=== PATIENT | female | born 1975 | race Hispanic/Latino ===

== ENCOUNTER 2017-06-08 03:53 | Inpatient (IN) | payer BC ==
[2017-06-08] MEDS ORDERED: Iopamidol 370 76% 100 ML VIAL ONE (04:06)
[2017-06-08 04:35] LABS: #Basophils 0.1 thou/uL (0.0-0.2); #Eosinphils 0.2 thou/uL (0.0-0.7); #Neutrophils 10.2 thou/uL (1.40-6.50); %Basophils 0.7 % (0.0-1.0); %Eosinophils 1.2 % (0.0-10.0); %Lymphocytes 20.5 % (21.0-51.0); %Monocytes 6.9 % (0.0-10.0); Hematocrit 32.5 % (36.0-47.0); Red Blood Cell (RBC) Count 3.55 mill/uL (4.20-5.40); White Blood Cell (WBC) Count 14.4 thou/uL (4.8-10.8)
[2017-06-08 04:51] LABS: ALT (SGPT) 12 U/L (8-55); AST (SGOT) 15 U/L (5-34); Alkaline Phosphatase 81 U/L (40-150); Anion Gap 14 mmol/L (10-20); BUN (Urea Nitrogen) 8 mg/dL (7.0-18.7); Bilirubin, Total 0.3 mg/dL (0.2-1.2); Calc. Creatinine Clearance 0 mL/min (70-130); Calcium 9.1 mg/dL (7.8-10.44); Carbon Dioxide 24 mmol/L (22-29); Chloride 107 mmol/L (98-107); Estimated GFR-MDRD Greater than 90; Globulin 3.5 g/dL (2.4-3.5); Lipase 29 U/L (8-78); Protein, Total 7.2 g/dL (6.0-8.3)
[2017-06-08 04:52] LABS: Bilirubin Negative (Negative); Blood, Urine Negative (Negative); Glucose, Urine (Dipstick) Negative (Negative); Ketone, Urine Negative (Negative); Nitrite Negative (Negative); Protein, Urine (Dipstick) Negative (Neg-Trace); Urobilinogen 0.2 mg/dL (0.2-1.0)
[2017-06-08] MEDS ORDERED: Sodium Chloride 0.9% 100 ML ONE (07:14)
[2017-06-08] MEDS ORDERED: Meropenem 1 GM VIAL ONE (07:14)
--- NOTE | 2017-06-08 08:22 | CT ---
PRELIMINARY REPORT/[facility]/EMERGENCY AFTER HOURS PROCEDURE: EXAM: CT Abdomen and Pelvis With Intravenous Contrast CLINICAL HISTORY: 41 years old, female; Pain; Abdominal pain; Localized; Left lower quadrant (llq); Prior surgery; Juanito rodrick date: 6+ months; Surgery type: Cervical ablation 2004, lap band 2006-removed 2010, gastric slee ve 2015, lamont 1999; Patient HX: Llq pain for a week, no hs of diverticulitis TECHNIQUE: Axial computed tomography images of the abdomen and pelvis with intravenous contrast. Coronal reformatted images were created and reviewed. CONTRAST: 90 mL of [id number] administered intravenously. COMPARISON: No relevant prior studies available. FINDINGS: Lower thorax: There is a small hiatal hernia. There is suggestion of distal esophageal wall thickeni ng. ABDOMEN: Liver: Unremarkable. No mass. Gallbladder and bile ducts: Cholecystectomy. No ductal dilation. Pancreas: Unremarkable. No mass. No ductal dilation. Spleen: Unremarkable. No splenomegaly. Adrenals: Unremarkable. No mass. Kidneys and ureters: Unremarkable. No solid mass. No hydronephrosis. Stomach and bowel: There are postoperative changes of the upper abdomen probably from gastric bypass . Moderate residual stool. No definite bowel obstruction. There is diverticular disease. There is wa ll thickening of the sigmoid colon with moderate pericolonic fat stranding. There are tiny air foci about sigmoid colon of the left lower quadrant without definite peripheral wall, image 64 series 2. This could be volume averaging of air within diverticulum. Cannot exclude microperforation. No gross free air. No definite fluid collection. Appendix: The appendix is not seen. However, no evidence for inflammatory changes in the right lower quadrant. PELVIS: Bladder: Unremarkable. No mass. Reproductive: Unremarkable as visualized. ABDOMEN and PELVIS: Intraperitoneal space: See above. Bones/joints: No acute fracture. No dislocation. Soft tissues: Unremarkable. Vasculature: Unremarkable. No abdominal aortic aneurysm. Lymph nodes: Unremarkable. No enlarged lymph nodes. IMPRESSION: Sigmoid diverticulitis with possible microperforation.No gross free air. No definite fluid collectio n. Distal esophageal wall thickening concerning for esophagitis. Thank you for allowing us to participate in the care of your patient. Dictated and Authenticated by: Darlin Angel DO 06/08/2017 7:00 AM Central Time ([place] \[place]\ [place]) FINAL REPORT CT ABDOMEN AND PELVIS WITH IV AND ORAL CONTRAST: DATE: 06/08/17. TIME: Performed on an emergency basis at 0556 hours. HISTORY: Abdominal pain. Prior bariatric surgery. FINDINGS: Findings agree with the preliminary report by Dr. Angel from [facility]. Inflammation of th e left colon has the appearance of acute diverticulitis. Hiatal hernia, gastroesophageal reflux, an d postoperative changes of the stomach are also evident. POS: [facility]
[2017-06-08] MEDS ORDERED: Ondansetron HCl/PF 4 MG/2 ML Vial IVP PRN (09:26)
[2017-06-08] MEDS ORDERED: Sodium Chloride 0.9% 1,000 ML IV SCH (09:26)
[2017-06-08] MEDS ORDERED: Ondansetron ODT 4 MG TAB SL PRN (09:26)
[2017-06-08 09:40] VITALS: BMI 27.3
[2017-06-08] MEDS ORDERED: FLU VACC QS2017-18 36 mo. & older 0.5 ML SYRINGE IM ONE (12:00)
--- NOTE | 2017-06-08 13:34 | HP ---
CHIEF COMPLAINT: Left lower quadrant abdominal pain. HISTORY OF PRESENT ILLNESS: The patient is a 41-year-old female with a 1-week history of left lower quadrant pain associated with nausea and vomiting. She went to Urgent Care. She was started on 2 oral antibiotics. She seemed to get a little better; then by Friday, it seemed to be getting worse. She called Dr. Jacobs, he ordered some labs that looked fine; however, it continued to get worse and she went to the emergency room last night and a CT scan was performed that showed diverticulitis with microperforation. PAST MEDICAL HISTORY: Hypothyroidism. PAST SURGICAL HISTORY: She has had a sleeve gastrectomy, laparoscopic cholecystectomy, sec tion, lap band. MEDICATIONS: She takes thyroid medication and multivitamins. ALLERGIES: KEFLEX, causing a rash. SOCIAL HISTORY: She is . She is an executive office manager. No tobacco. Social alcohol. FAMILY HISTORY: Breast cancer in her grandmother, hypertension in her father. PHYSICAL EXAMINATION: VITAL SIGNS: Temperature 99, pulse 100, blood pressure 96/50. GENERAL: A well-developed, well-nourished female, in minimal distress. HEENT: Unremarkable. LUNGS: Clear. HEART: Regular rate and rhythm. ABDOMEN: Soft, nondistended, very tender in the left lower quadrant. No palpable masses. LABORATORY AND X-RAY FINDINGS: Her white count is 14, H and H are 10 and 32, platelet count 425. E lectrolytes are unremarkable. Urinalysis is clear. CT scan shows sigmoid diverticulitis with possi ble microperforation, no free air. ASSESSMENT: Diverticulitis, failing outpatient therapy. PLAN: Bowel rest, IV antibiotics.
[2017-06-08] MEDS: D5 1/2 NS w/20 mEq KCL 1,000 ML IV SCH ×2 (14:01→20:55)
[2017-06-08] MEDS: Acetaminophen 1,000 MG in Premix Bag 1 BAG IVPB PRN (14:01)
[2017-06-08] MEDS: Meropenem 2 GM in Sodium Chloride 0.9% 100 ML IVPB SCH ×2 (14:02→21:40)
[2017-06-09] MEDS: D5 1/2 NS w/20 mEq KCL 1,000 ML IV SCH ×3 (03:26→20:48)
[2017-06-09] MEDS: Acetaminophen 1,000 MG in Premix Bag 1 BAG IVPB PRN ×2 (03:31→11:57)
[2017-06-09] MEDS: Meropenem 2 GM in Sodium Chloride 0.9% 100 ML IVPB SCH (05:15)
[2017-06-09] MEDS: Ketorolac Tromethamine 30 MG/ML VIAL IVP SCH ×3 (11:56→23:35)
[2017-06-09] MEDS: Meropenem 2 GM, Admixture Fee 1 EACH in Sodium Chloride 0.9% 100 ML IVPB SCH ×2 (14:50→22:11)
[2017-06-09] MEDS ORDERED: Acetaminophen 1,000 MG in Premix Bag 1 BAG IVPB PRN (17:53)
[2017-06-10] MEDS: Ketorolac Tromethamine 30 MG/ML VIAL IVP SCH (05:07)
[2017-06-10] MEDS: Meropenem 2 GM, Admixture Fee 1 EACH in Sodium Chloride 0.9% 100 ML IVPB SCH (05:08)
[2017-06-10] MEDS: D5 1/2 NS w/20 mEq KCL 1,000 ML IV SCH ×2 (05:08→11:14)
[2017-06-10 05:45] LABS: #Eosinphils 0.2 thou/uL (0.0-0.7); #Lymphocytes 3.1 thou/uL (1.20-3.40); #Monocytes 0.7 thou/uL (0.11-0.59); #Neutrophils 6.4 thou/uL (1.40-6.50); %Basophils 0.5 % (0.0-1.0); %Eosinophils 1.6 % (0.0-10.0); %Monocytes 6.5 % (0.0-10.0); Hematocrit 30.1 % (36.0-47.0); Mean Platelet Volume 7.1 fL (7.4-10.4); Red Blood Cell (RBC) Count 3.11 mill/uL (4.20-5.40); White Blood Cell (WBC) Count 10.3 thou/uL (4.8-10.8)
[2017-06-10 08:16] VITALS: BP 82/45; TEMP 98.5
--- NOTE | 2017-06-10 13:30 | DIS ---
DATE OF ADMISSION: 06/08/2017 DATE OF DISCHARGE: 06/10/2017 ADMISSION DIAGNOSIS: Diverticulitis with microperforation. DISCHARGE DIAGNOSIS: Diverticulitis with microperforation OPERATION PERFORMED: None. ADMISSION HISTORY: Patient is a 41-year-old female well known to myself from prior surgery. She wa s admitted in my absence over the weekend when she presented with severe left lower quadrant abdomin al pain. She had leukocytosis and CT evidence of a sigmoid colon diverticulitis with microperforati on. She was placed on IV antibiotics with bowel rest and admitted to the hospital. Her diet was ad vanced to liquids and her pain has markedly improved. She has been afebrile and her white blood malgorzata l count was normal. She was felt to be stable for discharge at this time. She will be discharged o n oral antibiotics for the next 5 days and a liquid diet during that same time. I will see her back in 2 weeks. I have discussed with her the possibility of a scheduled sigmoid colectomy secondary t o her multiple episodes of diverticulitis in the evidence of microperforation with a recent episode.
== END 2017-06-10 11:32 | disposition home or self-care (01) | DRG 392 ==
LOC: SCSER 03:53 → SURG A 09:02
PROVIDERS: ADMIT Specialist; ATTEND Specialist
DX: K57.20 Diverticulitis of large intestine with perforation and abscess without bleeding (principal); E03.9 Hypothyroidism, unspecified; Z98.84 Bariatric surgery status; Z98.0 Intestinal bypass and anastomosis status; Z88.1 Allergy status to other antibiotic agents; Z90.49 Acquired absence of other specified parts of digestive tract
CPT/HCPCS: 36415; 74177; 80053; 81003; 81025; 83690; 85025; 96365; 96375; 96376; J0131; J1885; J2185; J2270; J7050

== ENCOUNTER 2018-01-04 05:33 | Inpatient (IN) | payer BC ==
[2018-01-04 05:58] LABS: #Basophils 0.1 thou/uL (0.0-0.2); #Eosinphils 0.2 thou/uL (0.0-0.7); #Lymphocytes 2.6 thou/uL (1.20-3.40); #Neutrophils 9.8 thou/uL (1.40-6.50); %Eosinophils 1.4 % (0.0-10.0); %Lymphocytes 18.9 % (21.0-51.0); %Monocytes 7.5 % (0.0-10.0); %Neutrophils 71.2 % (42.0-75.0); Mean Corpuscular Hemoglobin 30.3 pg (27.0-31.0); Mean Corpuscular Volume 88.9 fl (81.0-99.0); Mean Platelet Volume 7.5 fL (7.4-10.4); Platelet Count 343 thou/uL (130-400); RBC Distribution Width 12.1 % (11.5-14.5); Red Blood Cell (RBC) Count 3.96 mill/uL (4.20-5.40); White Blood Cell (WBC) Count 13.8 thou/uL (4.8-10.8)
[2018-01-04 05:59] LABS: Bilirubin Negative (Negative); Blood, Urine Trace (Negative); Clarity Clear (Clear); Glucose, Urine (Dipstick) Negative (Negative); Leukocyte Negative (Negative); Nitrite Negative (Negative); Pregnancy Test - Urine (BHCG) Negative (Negative); Pregu Control Background? CLEAR/WHITE (CLR/WHITE); Pregu Control Bar Appear? YES (CONTROL BAR); Protein, Urine (Dipstick) Negative (Neg-Trace); Specific Gravity 1.025 (1.002-1.036); Specific Gravity, Urine 1.025 (1.005-1.030)
[2018-01-04 06:02] LABS: Bacteria/HPF 2+ HPF (None Seen); Hyaline Casts/LPF 0-3 HYALINE CAST LPF (0-3 Hyaline); RBC/HPF 0-3 HPF (0-3); Squamous Epithelial 0-3 HPF (0-3); WBC/HPF 0-3 HPF (0-3)
[2018-01-04 06:13] LABS: ALT (SGPT) 12 U/L (8-55); AST (SGOT) 21 U/L (5-34); Albumin 3.8 g/dL (3.5-5.0); Alkaline Phosphatase 73 U/L (40-150); Anion Gap 16 mmol/L (10-20); BUN (Urea Nitrogen) 10 mg/dL (7.0-18.7); Bilirubin, Total 1.1 mg/dL (0.2-1.2); Calc. Creatinine Clearance 0 mL/min (70-130); Calcium 8.9 mg/dL (7.8-10.44); Carbon Dioxide 21 mmol/L (22-29); Chloride 105 mmol/L (98-107); Estimated GFR-MDRD Greater than 90; Globulin 3.8 g/dL (2.4-3.5); Glucose 93 mg/dL (70-105); Lipase 17 U/L (8-78); Potassium 3.7 mmol/L (3.5-5.1); Protein, Total 7.6 g/dL (6.0-8.3); Sodium 138 mmol/L (136-145)
[2018-01-04] MEDS ORDERED: Iopamidol 370 76% 100 ML VIAL ONE (06:30)
[2018-01-04] MEDS ORDERED: Loratadine 10 MG TAB PO PRN (08:58)
[2018-01-04] MEDS ORDERED: Eucerin (Mineral Oil/Petrolatum,White) 30 gm Jar TOP PRN (08:58)
[2018-01-04] MEDS ORDERED: hydrALAZINE 20 MG/ML VIAL SLOW IVP PRN (08:58)
[2018-01-04] MEDS ORDERED: Acetaminophen 325 MG TAB PO PRN (08:58)
[2018-01-04] MEDS ORDERED: Ondansetron HCl/PF 4 MG/2 ML Vial IVP PRN (08:58)
[2018-01-04] MEDS ORDERED: Sodium Chloride 0.65% Nasal 44 ML BOT EA NARE PRN (08:58)
[2018-01-04] MEDS ORDERED: Mag-Al 1200 mg/1200 mg/30 ML UDCUP PO PRN (08:58)
[2018-01-04] MEDS ORDERED: Artificial Tears 18 DROP/0.9 ML EA EYE PRN (08:58)
[2018-01-04] MEDS ORDERED: Chloraseptic Spray 180 ml Bottle PO PRN (08:58)
[2018-01-04] MEDS ORDERED: Senokot 8.6 MG TAB PO PRN (08:58)
[2018-01-04] MEDS ORDERED: Morphine 4 MG/ML Carpuject SLOW IVP PRN (08:58)
[2018-01-04] MEDS ORDERED: Diabetic Tussin 200 MG/10 ML UDCUP PO PRN (08:58)
[2018-01-04] MEDS ORDERED: Milk Of Magnesia 30 ML UDCUP PO PRN (08:58)
[2018-01-04] MEDS ORDERED: Sodium Chloride 0.9% 1,000 ML IV SCH (09:00)
[2018-01-04 09:02] VITALS: BMI 29.2
[2018-01-04] MEDS ORDERED: Morphine 4 MG/ML VIAL IV PRN (09:06)
[2018-01-04] MEDS: HYDROcodone/Acetaminophen 5/325 mg Tablet PO PRN ×4 (10:04→22:22)
[2018-01-04] MEDS: Enoxaparin Sodium 40 MG/0.4 ML SYRINGE SC SCH (10:05)
--- NOTE | 2018-01-04 10:15 | CT ---
PRELIMINARY REPORT/[facility]/EMERGENTY AFTER-HOURS PROCEDURE Addendum created by Darlin Angel DO on 01/04/2018 7:40 AM Central Time ([place] & [place]) THIS REPORT CON TAINS FINDINGS THAT MAY BE CRITICAL TO PATIENT CARE. The findings were verbally communicated via tele phone conference with Dr. Osuna at 7:40 AM CDT on 01/04/2018.The findings were acknowledged and under stood. Initial Report created on 01/04/2018 7:29 AM Central Time ([place] & [place]) CT Abdomen and Pelvis With Intravenous Contrast CLINICAL HISTORY: 42 years old, female; Pain; Abdominal pain; Localized; Lower; Prior surgery; Surgery date: 6+ months; Surgery type: Cholecystectomy, 3 c-sections, lap band, laproscopy, lapband removal; Patient HX: Pt h ad acute on set of lower abd cramping and pain. Pt point to a bladder area. TECHNIQUE: Axial computed tomography images of the abdomen and pelvis with intravenous contrast. All CT scans at this facility use one or more dose reduction techniques, viz.: automated exposure control; ma/kV adj ustment per patient size (including targeted exams where dose is matched to indication; i.e. head); or iterative reconstruction technique. Coronal reformatted images were created and reviewed. CONTRAST: 100 mL of ISOVUE administered intravenously. COMPARISON: No relevant prior studies available. FINDINGS: Lung bases: There are tiny nodular densities of the lower lobes laterally, image 6-7 on series 2. The y may be in the centrilobular distribution, image 1 of series 2. Mediastinum: Mild to moderate hiatal hernia. ABDOMEN: Liver: Unremarkable. No mass. Gallbladder and bile ducts: Cholecystectomy. The common bile duct measures 0.9 cm, partially accounte d by cholecystectomy. Pancreas: Unremarkable. No mass. No ductal dilation. Spleen: Unremarkable. No splenomegaly. Adrenals: Unremarkable. No mass. Kidneys and ureters: Unremarkable. No solid mass. No hydronephrosis. Stomach and bowel: There is diverticular disease. There is segmental moderate wall thickening of the sigmoid colon with pericolonic fat stranding. No definite free air. On image 16 series 2 there is pos sible 1.9 x 0.9 cm air-fluid collection, concerning for early abscess. No obstruction. PELVIS: Appendix: No findings to suggest acute appendicitis. Bladder: Unremarkable. No mass. Reproductive: There is 1.9 cm cystic structure of the left adnexal region likely ovarian origin. ABDOMEN and PELVIS: Intraperitoneal space: Small free fluid within the lower posterior pelvis. Bones/joints: No acute fracture. No dislocation. Soft tissues: Unremarkable. Vasculature: Unremarkable. No abdominal aortic aneurysm. Lymph nodes: Unremarkable. No enlarged lymph nodes. Other findings: There are postoperative changes of the upper abdomen. IMPRESSION: Sigmoid diverticulitis with probable small abscess collection. No free air. Mild to moderate hiatal hernia. Tiny nodular densities at the lung bases. ?infectious or inflammatory etiology of indeterminate age. Cannot exclude neoplastic changes. Thank you for allowing us to participate in the care of your patient. Dictated and Authenticated by: Darlin Angel DO 01/04/2018 7:29 AM Central Time ([place] & [place]) FINAL REPORT CT ABDOMEN AND PELVIS: Date: 01/04/18 Multiple axial tomograms obtained through abdomen and pelvis with IV enhancement. FINDINGS/IMPRESSION: There is mural thickening and inflammatory changes in the mid sigmoid suggesting diverticulitis as no phylicia on the preliminary report. There may be an early abscess collection measuring approximately 1.5 c m along the wall of the sigmoid. There is a cystic lesion in the left pelvis measuring approximately 2.0 cm, which is probably ovarian. I am in agreement with the preliminary report issued by Robert. POS: [facility]
--- NOTE | 2018-01-04 12:11 | HP ---
PRIMARY CARE PHYSICIAN: Dr. Horacio Weber. REASON FOR ADMISSION: Acute and recurrent diverticulitis with abscess. HISTORY OF PRESENT ILLNESS: A 42-year-old female who has underlying history of hypothyroidi sm, who went to [facility] for abdominal pain. Patient reports that on Sat urday, which was yesterday, in the morning when she woke up she was feeling left lower quadrant disco mfort, but by the end of the day, her pain was getting worse. When she went to bed around 9, it was then the patient was having severe pain about 8/10 in intensity. She tried [id number] medicati on for pain as well as some heating pad, which did not improve her symptoms. Around 4 in the morning , the patient's pain had gotten worse. She was having unbearable pain and she was not able to tolera te pain and that is why she decided to go to emergency room for evaluation. In the emergency room, p johnny was having low-grade fevers. The patient also felt chills at home. Patient already knew that she has diverticulitis. Given her previous 4 episodes of diverticulitis in the past, patient report s that she had 3 minor episode of diverticulitis, which has improved with oral antibiotic therapy. M ost recent admission was in last year around June. At that time, the patient did not improv e with oral antibiotic therapy, required hospitalization with IV antibiotic therapy. After antibioti c therapy was finished, the patient had outpatient colonoscopy and patient was found with diverticulo sis. This is her fifth episode of diverticulitis per patient. Today, in the emergency room, patient had C T of the abdomen and pelvis, which also showed a small abscess in the sigmoid colon without any perfo ration. She denies any hematochezia or melena. She denies any nausea, vomiting, diarrhea. She does report constipation. Patient denies any UTI symptoms. She denies any chest pain, palpitation, shor tness of breath. She denies any headache or any flu-like illness. REVIEW OF SYSTEMS: The following complete review of systems was negative, unless otherwise mentioned in the HPI or below: Constitutional: Weight loss or gain, ability to conduct usual activities. Sk in: Rash, itching. Eyes: Double vision, pain. ENT/Mouth: Nose bleeding, neck stiffness, pain, te nderness. Cardiovascular: Palpitations, dyspnea on exertion, orthopnea. Respiratory: Shortness of breath, wheezing, cough, hemoptysis, fever, or night sweats. Gastrointestinal: Poor appetite, abdo sheryl pain, heartburn, nausea, vomiting, constipation, or diarrhea. Genitourinary: Urgency, frequen cy, dysuria, nocturia. Musculoskeletal: Pain, swelling. Neurologic/Psychiatric: Anxiety, depressi on. Allergy/Immunologic: Skin rash, bleeding tendency. Please see my HPI for pertinent positive an d negative. All other review of system reviewed and negative except as mentioned in the HPI. PAST MEDICAL HISTORY: Diverticulosis, hypothyroidism, history of diverticulitis x4 in the past. PAST SURGICAL HISTORY: Cholecystectomy, laparoscopic gastric sleeve surgery, x3, lap fredy ng, uterine ablation. PAST PSYCHIATRIC HISTORY: Reviewed and negative. SOCIAL HISTORY: Patient is and lives with her . No history of tobacco or other illic it drug abuse. She drinks alcohol occasionally. FAMILY HISTORY: Positive for diverticulitis and diverticulosis, but no strong family history of colo n cancer. No family history of coronary artery disease or stroke. ALLERGIES: KEFLEX, which gives her rash and itching. CURRENT HOME MEDICATIONS: Synthroid 25 mcg p.o. daily, naproxen p.r.n. basis. EMERGENCY ROOM COURSE: Patient is given Levaquin 750 mg, Flagyl 500 mg, morphine 2 mg, and IV fluid. PHYSICAL EXAMINATION: VITAL SIGNS: On arrival, blood pressure 104/46, pulse 98, respiratory rate 16, temperature 98.8, sat uration 99% on room air, weight 63.5 kilograms. GENERAL: The patient is currently alert, awake, no obvious acute distress. HEENT: Head: Normocephalic, atraumatic. Eyes: Pupils round, reactive to light. Extraocular muscl e intact. ENT: Oropharynx within normal limits. Moist mucous membranes, no oral lesion, no pharyng eal erythema, no exudate. NECK: Supple, no JVD, no thyromegaly, no carotid bruit, no jugular venous distention. LUNGS: Clear to auscultation without any rhonchi or rales. CARDIAC: S1 and S2 regular. No murmur, no gallop, no rub. ABDOMEN: Patient does have significant tenderness in left lower quadrant with rebound tenderness, no peritoneal sign, no guarding, no rigidity. BACK EXAMINATION: Unremarkable, no CVA tenderness. EXTREMITIES: Upper extremities, passive movement of all joints are normal. Lower extremities: No e angela. Good peripheral pulsation. SKIN: No skin rash. HEMATOLOGICAL SYSTEM: No lymphadenopathy. PSYCHIATRIC: Normal affect. NEUROLOGIC: Nonfocal examination. SIGNIFICANT LABORATORY DATA: CBC: WBC 13.8, hemoglobin 12.0, platelets 343. BMP: Sodium 138, pota ssium 3.7, chloride 105, carbon dioxide 21, anion gap 16, BUN 10, creatinine 0.68, glucose 93, calciu m 8.9. LFT: AST 21, ALT 12, alkaline phosphatase 73, albumin 3.8, lipase 17, lactic acid 1.3. Urin alysis, blood trace, bacteria, 2+. test negative. CT of the abdomen and pelvis showed mural thickening and inflammatory changes in sigmoid colon. Ther e is an early abscess measuring 1.5 cm along the wall of the sigmoid colon. ASSESSMENT AND PLAN: 1. Acute and recurrent diverticulitis of sigmoid colon with early abscess in the wall of sigmoid col on with intractable left lower quadrant abdominal pain. 2. The patient will require admission. She will be treated with Levaquin 750 mg IV daily and Flagyl 500 mg IV q.8 hourly. The patient will be given IV fluid with NS at 150 mL per hour. General Surge ry will be consulted. The patient's pain will be controlled with morphine p.r.n. basis. We will stephan p her n.p.o. except medication. We will monitor clinical response. We will ask General Surgery if t his patient will need any radiological-guided drainage of abscess or not, but will need monitoring wh ile in the hospital. This patient also has recurrent diverticulitis and that is why we will also ask General Surgery to see if patient is a candidate for any surgical treatment or not. We will repeat laboratories tomorrow. 3. Hypothyroidism. We will continue Synthroid 25 mcg p.o. daily. 4. Deep venous thrombosis prophylaxis. Lovenox 40 mg subcutaneous daily. 5. Gastrointestinal prophylaxis. Pepcid 20 mg IV b.i.d. 6. Code status: The patient is FULL CODE. Patient's is surrogate decision maker. Disposition plan based on clinical course. We are expecting patient's stay in hospital more than 2 m idnights. Plan of care discussed with the patient and patient's at bedside on the floor.
[2018-01-04] MEDS: Sodium Chloride 0.9% 1,000 ML IV SCH ×2 (12:25→17:27)
[2018-01-04] MEDS: Levothyroxine Sodium 25 MCG TAB PO SCH (12:55)
[2018-01-04] MEDS: metroNIDAZOLE 500 MG in Premix Bag 1 BAG IVPB SCH ×2 (13:34→21:09)
--- NOTE | 2018-01-04 16:15 | CON ---
DATE OF CONSULTATION: 01/04/2018 HISTORY OF PRESENT ILLNESS: Maribel Fernandes is a 42-year-old female with a recurrent episode o f diverticulitis. Today, is Friday, and on , she felt some mild discomfort, but yesterday it became severe in her left lower quadrant. She has had similar symptoms before, treated as an outpat ient. Dr. Jacobs admitted her months past for a similar episode, treated with 2 days of intravenous antibiotics and outpatient antibiotics, resolving her symptoms. On this occasion, CAT scan obtained revealed focus of sigmoid diverticulitis. Patient has had a colonoscopy with Dr. Greenberg approximately 1-2 years ago, noting diverticulitis throughout. The patient remains afebrile. White count was 13 earlier this morning. She has been admitted by hospitalist service. I have been asked to see her in consultation. ALLERGIES: CEPHALEXIN. TOBACCO: None. ALCOHOL: Socially. MEDICATIONS: Outpatient naproxen, levothyroxine, p.r.n. Toradol. PAST MEDICAL HISTORY: Patient injured her knee, recently has been taking anti-inflammatories for lam t. Hypothyroidism, treated medically. PAST SURGICAL HISTORY: 10/07/2010, Dr. Rivas removed laparoscopic band and port due to slippage. Sh e had a band placed prior to that. Patient has had a laparoscopic cholecystectomy, three C-sections, repair of fracture band tubing prior to removal. 02/08/2016, Dr. Jacobs performed laparoscopic sle james gastrectomy. She has a left thumb tendon repair. Patient reports prior to her surgery she weigh ed approximately 190 pounds. She dropped down to a low of 135 pounds and weighs about 150 pounds now . REVIEW OF SYSTEMS: Ten-point noncontributory except as noted above. PHYSICAL EXAMINATION: VITAL SIGNS: 98.6, 100, 16, 97/63. HEAD, EARS, EYES, NOSE, AND THROAT: Unremarkable. Sclerae nonicteric. LUNGS: Clear to auscultation. CARDIAC: Regular rate and rhythm without murmur, rub, or gallop. ABDOMEN: Soft, nontender, nondistended. Mild tenderness in left lower quadrant with mild guarding t o palpation. Abdomen, otherwise, is soft in other quadrants. EXTREMITIES: Unremarkable. No ankle edema. LABORATORY DATA: White count 13, hemoglobin 12. Basic metabolic profile normal. Last CAT scan at this facility was 06/2017. On this occasion, 01/04/2018, a CAT scan 05:00 this morn ing revealed changes of diverticulitis and a small cyst-like structure in the pelvis, probably unrela phylicia. She may contain fluid collection less than 1.5 cm. ASSESSMENT AND PLAN: Diverticulitis, recurrent. She has been treated on numerous occasions as an ou tpatient. She has required admission in the past; in fact, recently discharged 06/2017, after two da ys' stay and treated with intravenous antibiotics for diverticulitis. We would recommend bowel rest, intravenous antibiotics until her pain and tenderness resolves. Reimaging with CAT scan is not nece ssary. Once the pain resolves, she can be advanced to clears and full liquids, and once her pain is completely resolved, she can resume a soft diet, staying on a low-fiber diet for 2 weeks and then hig h fiber after that. Discussion regarding sigmoid colon resection undertaken with the patient and her . Our recomm endation is that she could consider this whenever she feels that her diverticulitis episodes are disr uptive to her life. I have talked to her about the operative procedure for laparoscopic sigmoid colo n resection and the convalescence and the risk of infection, bleeding, reoperation, anastomotic leaka ge, possible temporary diverting ileostomy or colostomy. At this point, she will discuss with her atul yancey. Dr. Jacobs will assume her care tomorrow, as he has seen her in the past for sleeve gastrect john and last year for her hospitalization for a similar episode of diverticulitis.
[2018-01-04] MEDS: Famotidine 40 MG/4 ML VIAL SLOW IVP SCH (21:09)
[2018-01-04] MEDS: Zolpidem Tartrate 5 MG TAB PO PRN (22:20)
[2018-01-05] MEDS: Sodium Chloride 0.9% 1,000 ML IV SCH ×2 (00:34→08:04)
[2018-01-05] MEDS: HYDROcodone/Acetaminophen 5/325 mg Tablet PO PRN ×3 (04:35→13:13)
[2018-01-05 06:04] LABS: #Eosinphils 0.1 thou/uL (0.0-0.7); #Lymphocytes 2.1 thou/uL (1.20-3.40); %Basophils 0.3 % (0.0-1.0); %Eosinophils 1.1 % (0.0-10.0); %Lymphocytes 16.9 % (21.0-51.0); %Monocytes 8.5 % (0.0-10.0); %Neutrophils 73.3 % (42.0-75.0); Hemoglobin 10.9 g/dL (12.0-16.0); Mean Corpuscular HGB CONC 33.2 g/dL (32.0-36.0); Mean Corpuscular Hemoglobin 30.1 pg (27.0-31.0); Mean Corpuscular Volume 90.6 fl (81.0-99.0); Mean Platelet Volume 7.7 fL (7.4-10.4); Platelet Count 305 thou/uL (130-400); RBC Distribution Width 12.1 % (11.5-14.5); Red Blood Cell (RBC) Count 3.62 mill/uL (4.20-5.40); White Blood Cell (WBC) Count 12.2 thou/uL (4.8-10.8)
[2018-01-05 06:18] LABS: ALT (SGPT) 7 U/L (8-55); AST (SGOT) 12 U/L (5-34); Albumin 3.2 g/dL (3.5-5.0); Alkaline Phosphatase 68 U/L (40-150); Anion Gap 14 mmol/L (10-20); BUN (Urea Nitrogen) 5 mg/dL (7.0-18.7); Bilirubin, Total 0.7 mg/dL (0.2-1.2); Calc. Creatinine Clearance 137 mL/min (70-130); Calcium 8.1 mg/dL (7.8-10.44); Carbon Dioxide 18 mmol/L (22-29); Chloride 109 mmol/L (98-107); Estimated GFR-MDRD Greater than 90; Globulin 2.8 g/dL (2.4-3.5); Glucose 66 mg/dL (70-105); Potassium 3.5 mmol/L (3.5-5.1); Sodium 137 mmol/L (136-145)
[2018-01-05] MEDS: metroNIDAZOLE 500 MG in Premix Bag 1 BAG IVPB SCH ×3 (06:23→21:20)
[2018-01-05] MEDS: Levothyroxine Sodium 25 MCG TAB PO SCH (08:05)
[2018-01-05] MEDS: Famotidine 40 MG/4 ML VIAL SLOW IVP SCH ×2 (08:08→21:21)
[2018-01-05] MEDS: Enoxaparin Sodium 40 MG/0.4 ML SYRINGE SC SCH (08:34)
[2018-01-05] MEDS ORDERED: traMADol HCl 50 MG TAB PO PRN (09:01)
[2018-01-05] MEDS: Ondansetron ODT 4 MG TAB PO PRN ×2 (09:18→15:04)
[2018-01-05] MEDS ORDERED: Piperacillin/Tazobactam 4.5 GM in Sodium Chloride 0.9% 100 ML IVPB SCH (10:00)
[2018-01-05] MEDS: Dextrose 5 %-0.45 % NaCl 1,000 ML IV SCH ×2 (10:32→21:23)
--- NOTE | 2018-01-05 10:46 | PDOC.PN ---
- Subjective Encounter Start Date: 01/05/18 Encounter Start Time: 07:30 -: old records requested/rev Patient seen and examined for diverticultis. pt still has LLQ abdominal pain. No overnight events - Objective Resuscitation Status: Resuscitation Status FULL:Full Resuscitation MAR Reviewed: Yes Vital Signs & Weight: Vital Signs (12 hours) Temp Pulse Resp BP Pulse Ox 01/05/18 08:00 99.0 F 98 18 104/69 97 01/05/18 04:02 96 01/05/18 04:00 99.3 F 93 20 72/41 L 98 01/05/18 00:00 98.6 F 117 H 20 89/59 L 96 Result Diagrams: 01/05/18 04:22 01/05/18 04:22 Phys Exam - Physical Examination Constitutional: NAD HEENT: PERRLA, moist MMs, sclera anicteric Neck: no JVD, supple Respiratory: no wheezing, no rales, no rhonchi Cardiovascular: RRR, no significant murmur, no rub Gastrointestinal: soft, no distention, positive bowel sounds LLQ tenderness, rebound tenderness Musculoskeletal: no edema, pulses present Neurological: non-focal, normal sensation Lymphatic: no nodes Psychiatric: normal affect, A&O x 3 Skin: no rash, normal turgor Dx/Plan (1) Diverticulitis of intestine with abscess Code(s): K57.80 - DVTRCLI OF INTEST, PART UNSP, W PERF AND ABSCESS W/O BLEED Status: Acute Qualifiers: Diverticulitis site: large intestine Diverticulitis bleeding: without bleeding Qualified Code(s): K57.20 - Diverticulitis of large intestine with perforation and abscess without bleeding (2) Hyperchloremic acidosis Code(s): E87.2 - ACIDOSIS Status: Acute (3) Anemia, normocytic normochromic Code(s): D64.9 - ANEMIA, UNSPECIFIED Status: Chronic (4) Hypothyroidism Code(s): E03.9 - HYPOTHYROIDISM, UNSPECIFIED Status: Chronic - Plan cont current plan of care, plan discussed w/ family, continue antibiotics * change IVF dex 1/2 NS at 75 ml per hour * General surgery to see pt today * will change to Zosyn instead of levaquin * continue flagyl * continue pain control * repeat labs tomorrow * medication reviewed as below * symptomatic treatment * will start clear liquid when surgeon ok and then advance slowly * discussed with . Review of Systems - Review of Systems Constitutional: negative: fever, chills, sweats, weakness, malaise, other Eyes: negative: Pain, Vision Change, Conjunctivae Inflammation, Eyelid Inflammation, Redness, Other ENT: negative: Ear Pain, Ear Discharge, Nose Pain, Nose Discharge, Nose Congestion, Mouth Pain, Mouth Swelling, Throat Pain, Throat Swelling, Other Respiratory: negative: Cough, Dry, Shortness of Breath, Hemoptysis, SOB with Excertion, Pleuritic Pain, Sputum, Wheezing Cardiovascular: negative: chest pain, palpitations, orthopnea, paroxysmal nocturnal dyspnea, edema, light headedness, other Gastrointestinal: Abdominal Pain. negative: Nausea, Vomiting, Diarrhea, Constipation, Melena, Hematochezia, Other Genitourinary: negative: Dysuria, Frequency, Incontinence, Hematuria, Retention , Other Musculoskeletal: negative: Neck Pain, Shoulder Pain, Arm Pain, Back Pain, Hand Pain, Leg Pain, Foot Pain, Other Skin: negative: Rash, Lesions, Felix, Bruising, Other - Medications/Allergies Allergies/Adverse Reactions: Allergies Allergy/AdvReac Type Severity Reaction Status Date / Time cephalexin monohydrate Allergy Verified 02/07/16 12:14 [From KeGenticel] Medications: Current Medications Acetaminophen (Tylenol) 650 mg PO Q4H PRN PRN Reason: Headache/Fever or Pain Hydrocodone Bitart/Acetaminophen ([place] 5/325) 1 tab PO Q4H PRN PRN Reason: Moderate Pain (4-6) Last Admin: 01/05/18 09:15 Dose: 1 tab Al Hydroxide/Mg Hydroxide (Maalox) 30 ml PO Q6H PRN PRN Reason: Heartburn or Indigestion Artificial Tears (Tears Naturale) 0 drop EA EYE PRN PRN PRN Reason: Dry Eyes Enoxaparin Sodium (Lovenox) 40 mg SC 0900 [facility] Last Admin: 01/05/18 08:34 Dose: Not Given Famotidine (Pepcid) 20 mg SLOW IVP BID [facility] Last Admin: 01/05/18 08:08 Dose: 20 mg Guaifenesin (Robitussin Sf) 200 mg PO Q4H PRN PRN Reason: Cough Hydralazine HCl (Apresoline) 10 mg SLOW IVP Q4H PRN PRN Reason: Systolic BP > 180 Metronidazole 500 mg/ Device 100 mls @ 100 mls/hr IVPB Q8HR [facility] Last Admin: 01/05/18 06:23 Dose: 100 mls Piperacillin Sod/Tazobactam (Sod 4.5 gm/ Sodium Chloride) 100 mls @ 200 mls/hr IVPB 0400,1000,1600,2200 [facility] Last Admin: 01/05/18 10:32 Dose: 100 mls Dextrose/Sodium Chloride (D5 1/2 Ns) 1,000 mls @ 75 mls/hr IV .[id number] [facility] Last Admin: 01/05/18 10:32 Dose: 1,000 mls Levothyroxine Sodium (Synthroid) 25 mcg PO DAILY [facility] Last Admin: 01/05/18 08:05 Dose: 25 mcg Loratadine (Claritin) 10 mg PO DAILYPRN PRN PRN Reason: Sinus Symptoms Mineral Oil/White Petrolatum (Eucerin Cream) 0 gm TOP BIDPRN PRN PRN Reason: Dry Skin Morphine Sulfate (Morphine) 4 mg IV Q4H PRN PRN Reason: Pain Ondansetron HCl (Zofran Odt) 4 mg PO Q6H PRN PRN Reason: Nausea/Vomiting Last Admin: 01/05/18 09:18 Dose: 4 mg Ondansetron HCl (Zofran) 4 mg IVP Q6H PRN PRN Reason: Nausea/Vomiting Phenol (Chloraseptic [place] 180 Ml Bot) 0 ml PO PRN PRN PRN Reason: Sore Throat Senna (Senokot) 2 tab PO HSPRN PRN PRN Reason: Constipation Sodium Chloride ([place] Nasal [place] 0.65%) 0 ml EA NARE QIDPRN PRN PRN Reason: Nasal Congestion Sodium Chloride (Flush - Normal Saline) 10 ml IVF Q12HR [facility] Last Admin: 01/05/18 08:35 Dose: Not Given Sodium Chloride (Flush - Normal Saline) 10 ml IVF PRN PRN PRN Reason: Saline Flush Tramadol HCl (Ultram) 50 mg PO Q6H PRN PRN Reason: Moderate Pain (4-6) Zolpidem Tartrate (Ambien) 5 mg PO HSPRN PRN PRN Reason: Insomnia Last Admin: 01/04/18 22:20 Dose: 5 mg
--- NOTE | 2018-01-05 19:43 | PRG ---
DATE OF SERVICE: 01/05/2018 HISTORY OF PRESENT ILLNESS: Ms. Fernandes is well known to myself from prior sleeve gastrectomy in . Additionally, I was involved with her hospitalization of 06/2017 for microperforation associated with diverticulitis. At that time, a decision was made by the patient to continue with observation in regards to her diverticulitis with hopes of avoiding further episodes. At that time, I placed her on Benefiber and I had recommended daily utilization. She admits that she has not been regular with using this. Additionally, she recently hurt her knee and was placed on a course of hydrocodone foll owed by a course of tramadol. This, not surprisingly, resulted in some constipation. Yesterday, ear ly in the morning, she had severe abdominal pain and presented to the emergency room. CT scan reveal ed evidence of diverticulitis. There is a question of a small 1-1.5 cm intramural abscess alongside the sigmoid colon. She also has a left ovarian cyst. She was admitted and placed on IV antibiotics and made n.p.o. She notes that she feels better today. She still has some left lower quadrant focal abdominal pain. Her white blood cell count which was 13.8 yesterday, has dropped down to 12.2. She has been afebrile since her admission. PHYSICAL EXAMINATION: VITAL SIGNS: Temperature is 98.9, pulse 89, blood pressure 103/70. LUNGS: Clear to auscultation. ABDOMEN: Soft with normoactive bowel sounds. She is focally tender in the left lower quadrant with guarding. EXTREMITIES: Unremarkable. LABORATORY DATA: Laboratory study results were already referenced. She has some minor electrolyte a bnormalities. ASSESSMENT: Patient with recurrent diverticulitis. Given her multiple recurrent episodes and 2 rece nt hospitalizations, I believe it would be appropriate to proceed with an elective sigmoid colectomy after this current episode resolved. For right now, I would recommend beginning clear liquids and co ntinue on IV antibiotics. She is ambulating several times a day, which I encouraged. I would expect her to defervesce over the next couple of days and hopefully be able to be discharged home on a cour se of oral antibiotics. She will need to be maintained on a daily fiber supplement until elective loving rgery could be performed.
[2018-01-05] MEDS: Zolpidem Tartrate 5 MG TAB PO PRN (23:25)
[2018-01-06 05:17] LABS: #Eosinphils 0.1 thou/uL (0.0-0.7); #Lymphocytes 2.5 thou/uL (1.20-3.40); #Monocytes 0.9 thou/uL (0.11-0.59); #Neutrophils 6.5 thou/uL (1.40-6.50); %Basophils 0.4 % (0.0-1.0); %Eosinophils 1.1 % (0.0-10.0); %Lymphocytes 25.1 % (21.0-51.0); %Monocytes 9.1 % (0.0-10.0); %Neutrophils 64.4 % (42.0-75.0); Hemoglobin 9.3 g/dL (12.0-16.0); Mean Corpuscular HGB CONC 34.9 g/dL (32.0-36.0); Mean Corpuscular Hemoglobin 31.9 pg (27.0-31.0); Mean Corpuscular Volume 91.3 fl (81.0-99.0); Platelet Count 313 thou/uL (130-400); RBC Distribution Width 11.9 % (11.5-14.5); Red Blood Cell (RBC) Count 2.91 mill/uL (4.20-5.40)
[2018-01-06 05:25] LABS: Anion Gap 8 mmol/L (10-20); BUN (Urea Nitrogen) Less than 4 mg/dL (7.0-18.7); Calc. Creatinine Clearance 124 mL/min (70-130); Calcium 8.4 mg/dL (7.8-10.44); Carbon Dioxide 25 mmol/L (22-29); Chloride 110 mmol/L (98-107); Estimated GFR-MDRD Greater than 90; Glucose 105 mg/dL (70-105); Potassium 3.4 mmol/L (3.5-5.1); Sodium 140 mmol/L (136-145)
[2018-01-06] MEDS: metroNIDAZOLE 500 MG in Premix Bag 1 BAG IVPB SCH ×2 (05:27→13:16)
[2018-01-06] MEDS ORDERED: D5 1/2 NS w/20 mEq KCL 1,000 ML IV SCH (07:30)
[2018-01-06] MEDS: Levothyroxine Sodium 25 MCG TAB PO SCH (07:54)
[2018-01-06] MEDS: Famotidine 40 MG/4 ML VIAL SLOW IVP SCH (07:54)
[2018-01-06] MEDS: Enoxaparin Sodium 40 MG/0.4 ML SYRINGE SC SCH (08:03)
--- NOTE | 2018-01-06 09:32 | PDOC.PN ---
- Subjective Encounter Start Date: 01/06/18 Encounter Start Time: 08:00 Patient seen and examined for diverticulitis, still has LLQ abdominal pain No overnight events - Objective Resuscitation Status: Resuscitation Status FULL:Full Resuscitation MAR Reviewed: Yes Vital Signs & Weight: Vital Signs (12 hours) Temp Pulse Resp BP Pulse Ox 01/06/18 08:00 98.7 F 77 16 01/06/18 07:52 98.7 F 77 16 93/62 96 01/06/18 06:46 98.6 F 76 18 90/63 97 01/06/18 05:08 98.6 F 76 18 90/63 97 01/05/18 23:27 98.7 F 88 16 107/68 99 Result Diagrams: 01/06/18 03:56 01/06/18 03:56 Phys Exam - Physical Examination Constitutional: NAD HEENT: PERRLA, moist MMs, sclera anicteric Neck: no JVD, supple Respiratory: no wheezing, no rales, no rhonchi Cardiovascular: RRR, no significant murmur, no rub Gastrointestinal: soft, no distention, positive bowel sounds LLQ tenderness with rebound Musculoskeletal: no edema, pulses present Neurological: non-focal, normal sensation, moves all 4 limbs Lymphatic: no nodes Psychiatric: normal affect, A&O x 3 Skin: no rash, normal turgor Dx/Plan (1) Diverticulitis of intestine with abscess Code(s): K57.80 - DVTRCLI OF INTEST, PART UNSP, W PERF AND ABSCESS W/O BLEED Status: Acute Qualifiers: Diverticulitis site: large intestine Diverticulitis bleeding: without bleeding Qualified Code(s): K57.20 - Diverticulitis of large intestine with perforation and abscess without bleeding (2) Hyperchloremic acidosis Code(s): E87.2 - ACIDOSIS Status: Acute (3) Anemia, normocytic normochromic Code(s): D64.9 - ANEMIA, UNSPECIFIED Status: Chronic (4) Hypothyroidism Code(s): E03.9 - HYPOTHYROIDISM, UNSPECIFIED Status: Chronic (5) Hypokalemia Code(s): E87.6 - HYPOKALEMIA Status: Acute - Plan cont current plan of care, plan discussed w/ family, continue antibiotics * continue IV levaquin and flagyl * medication reviewed as below * symptomatic treatment * pain control with pain meds * spoke with surgeon and she will need elective surgery after 4-6 weeks * continue full liquid diet. * replace potassium Review of Systems - Review of Systems Constitutional: negative: fever, chills, sweats, weakness, malaise, other Eyes: negative: Pain, Vision Change, Conjunctivae Inflammation, Eyelid Inflammation, Redness, Other ENT: negative: Ear Pain, Ear Discharge, Nose Pain, Nose Discharge, Nose Congestion, Mouth Pain, Mouth Swelling, Throat Pain, Throat Swelling, Other Respiratory: negative: Cough, Dry, Shortness of Breath, Hemoptysis, SOB with Excertion, Pleuritic Pain, Sputum, Wheezing Cardiovascular: negative: chest pain, palpitations, orthopnea, paroxysmal nocturnal dyspnea, edema, light headedness, other Gastrointestinal: Abdominal Pain. negative: Nausea, Vomiting, Diarrhea, Constipation, Melena, Hematochezia, Other Genitourinary: negative: Dysuria, Frequency, Incontinence, Hematuria, Retention , Other Musculoskeletal: negative: Neck Pain, Shoulder Pain, Arm Pain, Back Pain, Hand Pain, Leg Pain, Foot Pain, Other Skin: negative: Rash, Lesions, Felix, Bruising, Other - Medications/Allergies Allergies/Adverse Reactions: Allergies Allergy/AdvReac Type Severity Reaction Status Date / Time cephalexin monohydrate Allergy Verified 02/07/16 12:14 [From Keflex] Medications: Current Medications Acetaminophen (Tylenol) 650 mg PO Q4H PRN PRN Reason: Headache/Fever or Pain Last Admin: 01/06/18 09:22 Dose: 650 mg Hydrocodone Bitart/Acetaminophen ([place] 5/325) 1 tab PO Q4H PRN PRN Reason: Moderate Pain (4-6) Last Admin: 01/05/18 13:13 Dose: 1 tab Al Hydroxide/Mg Hydroxide (Maalox) 30 ml PO Q6H PRN PRN Reason: Heartburn or Indigestion Artificial Tears (Tears Naturale) 0 drop EA EYE PRN PRN PRN Reason: Dry Eyes Enoxaparin Sodium (Lovenox) 40 mg SC 0900 [facility] Last Admin: 01/06/18 08:03 Dose: Not Given Famotidine (Pepcid) 20 mg SLOW IVP BID [facility] Last Admin: 01/06/18 07:54 Dose: 20 mg Guaifenesin (Robitussin Sf) 200 mg PO Q4H PRN PRN Reason: Cough Hydralazine HCl (Apresoline) 10 mg SLOW IVP Q4H PRN PRN Reason: Systolic BP > 180 Metronidazole 500 mg/ Device 100 mls @ 100 mls/hr IVPB Q8HR [facility] Last Admin: 01/06/18 05:27 Dose: 100 mls Levofloxacin 500 mg/ Device 100 mls @ 100 mls/hr IVPB Q24HR@0800 [facility] Last Admin: 01/06/18 07:54 Dose: 100 mls Potassium Chloride/Dextrose/Sod Cl (D5 1/2 Ns W/20 Meq Kcl) 1,000 mls @ 50 mls/ hr IV .Q20H [facility] Last Admin: 01/06/18 07:54 Dose: 1,000 mls Levothyroxine Sodium (Synthroid) 25 mcg PO DAILY [facility] Last Admin: 01/06/18 07:54 Dose: 25 mcg Loratadine (Claritin) 10 mg PO DAILYPRN PRN PRN Reason: Sinus Symptoms Mineral Oil/White Petrolatum (Eucerin Cream) 0 gm TOP BIDPRN PRN PRN Reason: Dry Skin Morphine Sulfate (Morphine) 4 mg IV Q4H PRN PRN Reason: Pain Ondansetron HCl (Zofran Odt) 4 mg PO Q6H PRN PRN Reason: Nausea/Vomiting Last Admin: 01/05/18 15:04 Dose: 4 mg Ondansetron HCl (Zofran) 4 mg IVP Q6H PRN PRN Reason: Nausea/Vomiting Phenol (Chloraseptic [place] 180 Ml Bot) 0 ml PO PRN PRN PRN Reason: Sore Throat Senna (Senokot) 2 tab PO HSPRN PRN PRN Reason: Constipation Sodium Chloride (Saline Nasal [place] 0.65%) 0 ml EA NARE QIDPRN PRN PRN Reason: Nasal Congestion Sodium Chloride (Flush - Normal Saline) 10 ml IVF Q12HR [facility] Last Admin: 01/06/18 08:03 Dose: Not Given Sodium Chloride (Flush - Normal Saline) 10 ml IVF PRN PRN PRN Reason: Saline Flush Tramadol HCl (Ultram) 50 mg PO Q6H PRN PRN Reason: Moderate Pain (4-6) Zolpidem Tartrate (Ambien) 5 mg PO HSPRN PRN PRN Reason: Insomnia Last Admin: 01/05/18 23:25 Dose: 5 mg
[2018-01-06] MEDS ORDERED: Potassium Chloride 20 MEQ TAB PO SCH (09:45)
[2018-01-06 11:34] VITALS: BP 97/66; TEMP 98.4
--- NOTE | 2018-01-06 12:25 | PRG ---
DATE OF SERVICE: 01/06/2018 SUBJECTIVE: Ms. Fernandes is hospital day #3 in treatment of her diverticulitis. She has been mainta ined on IV antibiotics and a liquid diet. She is tolerating her liquid diet. She notes that her cameron n is better. She is ambulating well. She has still not had a bowel movement. PHYSICAL EXAMINATION: VITAL SIGNS: Afebrile. Vital signs within normal limits. ABDOMEN: Soft with mild to moderate very focal tenderness in the left lower quadrant with an entirel y benign remainder of the abdomen. LABORATORY DATA: Reveals that her white blood cell count is normal today at 10 (down from 12 yesterd ay). ASSESSMENT AND PLAN: The patient has defervesced nicely in regards to her diverticulitis. She is st able for discharge today on oral antibiotics and a liquid diet. I have recommended she maintain liqu ids for the next week and then resume a normal high fiber diet. I have recommended she begin taking her fiber supplement today using Benefiber. She should be on Cipro and Flagyl for the next week also . I would like to see her back in 2 weeks and we will plan an elective sigmoid colectomy in about 6- 8 weeks.
--- NOTE | 2018-01-06 12:34 | DIS ---
PRIMARY CARE PHYSICIAN: Dr. Horacio Weber DATE OF ADMISSION: 01/04/2018 DATE OF DISCHARGE: 01/06/2018 DISCHARGE DISPOSITION: Home. PRIMARY DISCHARGE DIAGNOSES: Acute and recurrent diverticulitis with small abscess. SECONDARY DISCHARGE DIAGNOSES: Hypothyroidism, diverticulosis, history of morbid obesity. PRIMARY PROCEDURES/OPERATIONS: None. RADIOLOGICAL INVESTIGATION: CT of the abdomen and pelvis showed sigmoid colon diverticulitis with a tiny abscess without any perforation. SIGNIFICANT LABS: WBC 10.0, hemoglobin 9.3, platelet 313. Sodium 140, potassium 3.4, BUN less than 4, creatinine 0.63. LFT normal. Urinalysis unremarkable. DISCHARGE MEDICATIONS: Levofloxacin 750 mg p.o. daily for 15 days, Flagyl 500 mg p.o. t.i.d. for 15 days, Florastor 250 mg p.o. daily, Synthroid 25 mcg p.o. daily, vitamin D3 3000 units p.o. daily. CONTRAINDICATIONS: None. CODE STATUS: Full code. . INPATIENT CONSULTANTS: Dr. Jacobs and Dr. Cabrera saw this patient while in hospital. TEST RESULTS PENDING ON DISCHARGE: None. ALLERGIES: KEFLEX. DISCHARGE PLAN: Post hospital, the patient will follow up with Dr. Jacobs and Dr. Horacio Weber as instructed. HOSPITAL COURSE: The patient is a 42-year-old female who has previous recurrent diverticulitis and t his time she was also having left lower quadrant pain. She had a CT of the abdomen and pelvis and di agnosed with diverticulitis with a small abscess. While in hospital, she was treated with IV antibio tic therapy with Levaquin and Flagyl. She had leukocytosis that was improved. Her pain is also rela tively well controlled. Dr. Jacobs evaluated this patient today and he cleared her for discharge. At this point, I spoke with the patient. She also wants to go home today, no matter what. I gave he r a chance of staying in hospital for more antibiotic therapy, but patient prefers that she will go h ome on oral antibiotic therapy. The patient is seen and examined at bedside today. Please see my progress note from today for furthe r details. All new medication prescription sent to her pharmacy.
[2018-01-06] MEDS ORDERED: Famotidine 20 MG TAB PO SCH (21:00)
== END 2018-01-06 13:54 | disposition home or self-care (01) | DRG 392 ==
LOC: SCSER 05:33 → T4-A 08:30
PROVIDERS: ADMIT Internal Medicine; ATTEND Internal Medicine
DX: K57.20 Diverticulitis of large intestine with perforation and abscess without bleeding (principal); E87.2 Acidosis; E03.9 Hypothyroidism, unspecified; Z79.899 Other long term (current) drug therapy; Z88.8 Allergy status to other drugs, medicaments and biological substances; Z98.84 Bariatric surgery status; K57.90 Diverticulosis of intestine, part unspecified, without perforation or abscess without bleeding; D64.9 Anemia, unspecified; E87.6 Hypokalemia
CPT/HCPCS: 36415; 74177; 80048; 80053; 81003; 81015; 81025; 83605; 83690; 85025; 96361; 96365; 96375; A4216; J1650; J1956; J2543; J7050; Q0162

== ENCOUNTER 2018-04-01 10:30 | Inpatient (IN) | payer BC ==
[2018-04-01 11:12] VITALS: BMI 28.1
[2018-04-07] MEDS ORDERED: Bupivacaine HCl 0.5%/Epinephrine 1:200,000/PF 30 ml Vial ONE ×2 (09:52→09:53)
[2018-04-07] MEDS ORDERED: PROPOFOL 200 MG/20 ML VIAL ONE (09:59)
[2018-04-07] MEDS ORDERED: PHENYLEPHRINE-NS 100 MCG/ML 10 ML SYRINGE ONE (09:59)
[2018-04-07] MEDS ORDERED: Lidocaine 1% PF 5 ML VIAL ONE (09:59)
[2018-04-07] MEDS ORDERED: Ondansetron HCl/PF 4 MG/2 ML Vial ONE (09:59)
[2018-04-07] MEDS ORDERED: Dexamethasone 20 MG/5 ML VIAL ONE (09:59)
[2018-04-07] MEDS ORDERED: Glycopyrrolate 0.2 MG/ML 5 ML SYRINGE ONE (09:59)
[2018-04-07] MEDS ORDERED: Promethazine HCl 25 MG/ML VIAL IM PRN (10:50)
[2018-04-07] MEDS ORDERED: Morphine 4 MG/ML VIAL SLOW IVP PRN (10:50)
[2018-04-07] MEDS ORDERED: hydrALAZINE 20 MG/ML VIAL SLOW IVP PRN (10:50)
[2018-04-07] MEDS ORDERED: Ondansetron HCl/PF 4 MG/2 ML Vial IVP PRN (10:50)
[2018-04-07] MEDS: Famotidine/PF 20 mg/2ml Vial SLOW IVP SCH ×2 (12:38→21:01)
[2018-04-07] MEDS: Levothyroxine Sodium 25 MCG TAB PO SCH (12:38)
[2018-04-07] MEDS: Famotidine 20 MG TAB PO SCH ×2 (12:38→21:04)
[2018-04-07] MEDS: Multivit, Therapeutic 1 TAB PO SCH (12:38)
[2018-04-07] MEDS: Acetaminophen 1,000 MG in Premix Bag 1 BAG IVPB SCH ×3 (12:59→23:26)
[2018-04-07] MEDS: Ketorolac Tromethamine 30 MG/ML VIAL IVP SCH ×3 (12:59→23:26)
[2018-04-07] MEDS: D5 1/2 NS w/20 mEq KCL 1,000 ML IV SCH ×2 (13:02→21:00)
[2018-04-07] MEDS: Enoxaparin Sodium 40 MG/0.4 ML SYRINGE SC SCH (21:01)
[2018-04-08] MEDS: D5 1/2 NS w/20 mEq KCL 1,000 ML IV SCH ×4 (04:55→21:45)
[2018-04-08] MEDS: Ketorolac Tromethamine 30 MG/ML VIAL IVP SCH ×4 (05:43→23:24)
[2018-04-08] MEDS: Acetaminophen 1,000 MG in Premix Bag 1 BAG IVPB SCH (05:43)
[2018-04-08] MEDS: Levothyroxine Sodium 25 MCG TAB PO SCH (05:44)
[2018-04-08 06:13] LABS: #Lymphocytes 1.4 thou/uL (1.20-3.40); #Monocytes 1.1 thou/uL (0.11-0.59); #Neutrophils 11.8 thou/uL (1.40-6.50); %Lymphocytes 9.5 % (21.0-51.0); %Monocytes 7.9 % (0.0-10.0); %Neutrophils 82.6 % (42.0-75.0); Hemoglobin 10.2 g/dL (12.0-16.0); Mean Corpuscular HGB CONC 34.4 g/dL (32.0-36.0); Mean Corpuscular Hemoglobin 31.2 pg (27.0-31.0); Mean Corpuscular Volume 90.7 fL (78.0-98.0); Mean Platelet Volume 7.8 fL (7.4-10.4); Platelet Count 272 thou/uL (130-400); Red Blood Cell (RBC) Count 3.28 mill/uL (4.20-5.40); White Blood Cell (WBC) Count 14.3 thou/uL (4.8-10.8)
[2018-04-08 06:20] LABS: Anion Gap 12 mmol/L (10-20); BUN (Urea Nitrogen) 5 mg/dL (7.0-18.7); Calc. Creatinine Clearance 119 mL/min (70-130); Calcium 8.7 mg/dL (7.8-10.44); Carbon Dioxide 21 mmol/L (22-29); Chloride 109 mmol/L (98-107); Estimated GFR-MDRD Greater than 90; Glucose 133 mg/dL (70-105); Sodium 138 mmol/L (136-145)
[2018-04-08] MEDS: Multivit, Therapeutic 1 TAB PO SCH (09:35)
[2018-04-08] MEDS: Famotidine 20 MG TAB PO SCH ×2 (09:35→21:47)
[2018-04-08] MEDS: Famotidine/PF 20 mg/2ml Vial SLOW IVP SCH ×2 (16:23→21:46)
[2018-04-08] MEDS: Enoxaparin Sodium 40 MG/0.4 ML SYRINGE SC SCH (21:46)
[2018-04-09 05:14] VITALS: TEMP 98.1
[2018-04-09] MEDS: Ketorolac Tromethamine 30 MG/ML VIAL IVP SCH ×2 (05:55→11:54)
[2018-04-09] MEDS: Levothyroxine Sodium 25 MCG TAB PO SCH (06:03)
[2018-04-09] MEDS: D5 1/2 NS w/20 mEq KCL 1,000 ML IV SCH ×2 (06:05→06:08)
[2018-04-09] MEDS: Famotidine/PF 20 mg/2ml Vial SLOW IVP SCH (09:30)
[2018-04-09] MEDS: Famotidine 20 MG TAB PO SCH (09:30)
[2018-04-09] MEDS: Multivit, Therapeutic 1 TAB PO SCH (09:30)
[2018-04-09] MEDS ORDERED: HYDROcodone/Acetaminophen 7.5/325 mg Tablet PO PRN ×2 (09:32)
[2018-04-09 12:23] VITALS: BP 102/56
--- NOTE | 2018-04-10 14:29 | OP ---
DATE OF OPERATION: 04/07/2018 PREOPERATIVE DIAGNOSIS: Recurrent severe sigmoid colon diverticulitis. POSTOPERATIVE DIAGNOSIS: Recurrent severe sigmoid colon diverticulitis. OPERATION PERFORMED: Laparoscopic sigmoid colectomy. ANESTHESIA: General endotracheal. INDICATIONS: The patient is a 42-year-old female. She has been hospitalized on several occ asions for diverticulitis. Her most recent episode resulted in a peridiverticular abscess. She was taken to the operating room at this time for laparoscopic sigmoid colectomy. DESCRIPTION OF OPERATION: Informed consent was obtained. The patient was taken to the operating magi m where general endotracheal anesthesia obtained with the patient in supine position. She was then p laced in dorsal lithotomy position. An catheter was placed. Abdomen was prepped with ChloraPrep and draped in sterile fashion. Local anesthetic was infiltrated and 5 mm supraumbilical incision was created through which a Veress needle was passed in the peritoneal cavity and pneumoperitoneum estab lished using carbon dioxide up to a pressure of 15 mmHg. A 5 mm trocar was passed through this same incision. Laparoscopic camera was passed this port. Under direct vision, a 12 mm right lower quadra nt port was placed. I then selected a site for the left lower quadrant extraction site. An oblique 7.5 cm incision was created in the left lower quadrant and muscle splitting was used to gain access t o the abdominal cavity. The Jayy wound retractor was placed followed by the Luis. Hand-assisted dissection was then continued using the LigaSure device. The area of the inflamed and diseased sigmoid colon was easily visualized and adherent to the left pelvic side wall. I began by m obilizing the left colon along the white line of Toldt. The sigmoid colon was then fully mobilized. There was a redundant segment extending down to the pelvis. I dissected down to the rectosigmoid ju nction and at this level, created a mesenteric window. The rectosigmoid colon was divided at this le aniceto with a single fire of the blue load of the [place] stapler. The ureter was clearly visualized on both sides. The mesentery was taken down in an ascending fashion. I then assessed the left colon t o see what would easily reach down to the rectal transection site. This area was marked with the Lig aSure. The colon was then delivered externally through the wound retractor. Segregated instrumentation was used and sterile towels were placed around the wound retractor site. A colotomy was created at this location. The EEA sizers were used to determine the appropriate size of the stapler. I selected a 31 mm EEA stapler and obtained the anvil. This was then brought in thr ough the colotomy and the spike was delivered through the colon wall several centimeters proximally. The colotomy was then excluded in continuity with the resection segment with a final fire of the Ech viviane stapler. The resected segment was then passed off the field. There were diverticula up to the level of transection, but none visualized proximally. At this point, gloves were changed and instruments were passed off the field before continuing the op eration. The spike was cleansed with Betadine. I then placed a pursestring suture of 2-0 Prolene ar ound the base of the spike. The segment of the colon was dropped back down to the abdominal cavity. I then mobilized the rectum little further by incising the peritoneum on each side of the rectum was extended down to the pelvis. The EEA sizers were passed through the anus up to the rectal staple line. The EEA stapler was then a lso brought up to the staple line and the spike was advanced just anterior to the staple line under d irect vision. The spike was attached to the anvil. The two segments of bowel were approximated and anastomosed by firing the stapler. The donuts were inspected and found to be intact. The anastomosi s was inspected with insufflation under water to ensure that it was airtight. There was no evidence of leak. The anastomosis was without tension. All segments appeared to be viable. The fascial defect in the right lower quadrant was closed with 0 Vicryl suture using a GraNee needle. All ports and instruments removed under direct vision. The Jayy wound retractor was removed. Th e laparoscopic instrumentation was passed off the field. The abdominal was cleansed. At this point, the closing instrumentation was utilized. Gowns and gloves were changed. Sterile tow els were placed around the operative site. The fascia was closed in two layers using running suture of #1 PDS. The wound was then copiously irrigated with 2 liters of warm saline. All irrigant was as pirated. The wound was then closed in layers with 3-0 and 4-0 Monocryl and Dermabond was placed exte rnally. The port sites were closed with 4-0 Monocryl, again using Dermabond. There were no complica tions. The patient tolerated the procedure well and was taken to recovery room in stable condition.
== END 2018-04-09 11:56 | disposition home or self-care (01) | DRG 331 ==
LOC: SURG A 04-07 06:19 → SURG B 04-07 12:18
PROVIDERS: ADMIT Specialist; ATTEND Specialist
PROC: 0DTN4ZZ Resection of Sigmoid Colon, Percutaneous Endoscopic Approach (ICD-10-PCS; principal; 2018-04-07)
DX: K57.92 Diverticulitis of intestine, part unspecified, without perforation or abscess without bleeding (principal); Z98.84 Bariatric surgery status; E03.9 Hypothyroidism, unspecified
CPT/HCPCS: 36416; 80048; 85025; 88305; 88307; 88341; 88342; J0131; J0670; J1100; J1650; J1885; J2001; J2270; J2405; J2704; S0028

== ENCOUNTER 2018-04-01 10:48 | Outpatient (CLI) | payer BC ==
[2018-04-01 11:57] LABS: #Eosinphils 0.1 thou/uL (0.0-0.7); #Lymphocytes 2.6 thou/uL (1.20-3.40); #Monocytes 0.5 thou/uL (0.11-0.59); #Neutrophils 4.9 thou/uL (1.40-6.50); %Basophils 0.5 % (0.0-1.0); %Eosinophils 1.3 % (0.0-10.0); %Lymphocytes 31.6 % (21.0-51.0); %Monocytes 6.4 % (0.0-10.0); %Neutrophils 60.1 % (42.0-75.0); Hemoglobin 12.3 g/dL (12.0-16.0); Mean Corpuscular HGB CONC 34.8 g/dL (32.0-36.0); Mean Corpuscular Hemoglobin 31.1 pg (27.0-31.0); Mean Corpuscular Volume 89.5 fL (78.0-98.0); Mean Platelet Volume 7.2 fL (7.4-10.4); Platelet Count 357 thou/uL (130-400); RBC Distribution Width 12.1 % (11.5-14.5); Red Blood Cell (RBC) Count 3.95 mill/uL (4.20-5.40); White Blood Cell (WBC) Count 8.2 thou/uL (4.8-10.8)
[2018-04-01 12:12] LABS: Hemoglobin A1c 4.8 % (4.0-6.0)
[2018-04-01 12:24] LABS: Anion Gap 11 mmol/L (10-20); BUN (Urea Nitrogen) 12 mg/dL (7.0-18.7); Calc. Creatinine Clearance 0 mL/min (70-130); Carbon Dioxide 27 mmol/L (22-29); Chloride 105 mmol/L (98-107); Estimated GFR-MDRD 88; Glucose 91 mg/dL (70-105); Potassium 3.6 mmol/L (3.5-5.1); Sodium 139 mmol/L (136-145)
== END 2018-04-01 10:49 | disposition home or self-care (01) ==
LOC: LABBT 10:48
PROVIDERS: ATTEND Specialist
DX: Z01.812 Encounter for preprocedural laboratory examination (principal); K57.92 Diverticulitis of intestine, part unspecified, without perforation or abscess without bleeding
CPT/HCPCS: 80048; 83036; 85025

== ENCOUNTER 2022-09-12 07:58 | Outpatient (CLI) | payer BC | END 2022-09-12 07:59 | disposition home or self-care (01) | LOC: RAD 07:58 | PROVIDERS: ATTEND Internal Medicine | DX: K21.9 Gastro-esophageal reflux disease without esophagitis (principal); K44.9 Diaphragmatic hernia without obstruction or gangrene; Z90.3 Acquired absence of stomach [part of] | CPT/HCPCS: 74246 ==

== ENCOUNTER 2022-12-13 10:30 | Inpatient (IN) | payer BC ==
[2022-12-13 14:13] VITALS: BMI 30.4
[2022-12-17] MEDS ORDERED: Ketorolac Tromethamine 30 MG/ML VIAL ONE (06:25)
[2022-12-17] MEDS ORDERED: Sodium Chloride 0.9% 0 ML ONE (06:25)
[2022-12-17] MEDS ORDERED: Acetaminophen 500 MG TAB ONE (06:25)
[2022-12-17] MEDS ORDERED: CEFAZOLIN 2 GM VIAL ONE ×2 (06:25→07:38)
[2022-12-17] MEDS ORDERED: Bupivacaine/Epinephrine 0.25% 30 ML VIAL ONE (06:55)
[2022-12-17] MEDS ORDERED: Famotidine/PF 20 mg/2ml Vial ONE ×2 (06:59→07:23)
[2022-12-17] MEDS ORDERED: Fentanyl 250 MCG/5 ML VIAL ONE (06:59)
[2022-12-17] MEDS ORDERED: SUGAMMADEX SODIUM 200 MG/2 ML VIAL ONE (06:59)
[2022-12-17] MEDS ORDERED: Dexmedetomidine 200 MCG/2 ML VIAL ONE (06:59)
[2022-12-17] MEDS ORDERED: Scopolamine 1.5 mg/72 hour Patch ONE (07:23)
[2022-12-17] MEDS ORDERED: Heparin 5,000 UNITS/ML VIAL ONE (07:23)
[2022-12-17] MEDS ORDERED: Midazolam HCl 2 mg/2 ml Vial ONE (07:23)
[2022-12-17] MEDS ORDERED: Sodium Chloride 0.9% 100 ML ONE (07:38)
[2022-12-17] MEDS ORDERED: Phenylephrine 10 MG/ML VIAL ONE (07:51)
[2022-12-17] MEDS ORDERED: Dexamethasone 20 MG/5 ML VIAL ONE (07:51)
[2022-12-17] MEDS ORDERED: PROPOFOL 200 MG/20 ML VIAL ONE (07:51)
[2022-12-17] MEDS ORDERED: Rocuronium Bromide 10 MG/ML (10ML VIAL) ONE (07:51)
[2022-12-17] MEDS ORDERED: Lidocaine 1% PF 5 ML VIAL ONE (07:51)
[2022-12-17] MEDS ORDERED: Ondansetron PF 4 MG/2 ML Vial ONE ×2 (07:51→11:33)
[2022-12-17] MEDS ORDERED: Levofloxacin 500 mg/D5W 100 ml Premix Bag ONE (07:57)
[2022-12-17] MEDS ORDERED: Ondansetron HCl/PF 4 MG/2 ML Vial IVP PRN (08:26)
[2022-12-17] MEDS ORDERED: HYDROmorphone 2 MG/ML VIAL SLOW IVP PRN (08:26)
[2022-12-17] MEDS ORDERED: Promethazine HCl 25 MG/ML VIAL IM PRN ×2 (08:26→11:09)
[2022-12-17] MEDS ORDERED: Meperidine HCl/PF 25 MG/ML VIAL SLOW IVP PRN (08:26)
[2022-12-17] MEDS ORDERED: Morphine Sulfate 2 MG/ML SYRINGE SLOW IVP PRN (08:26)
[2022-12-17] MEDS ORDERED: HYDROmorphone 2 MG/ML VIAL ONE (11:05)
[2022-12-17] MEDS ORDERED: diphenhydrAMINE 50 MG/ML VIAL IVP PRN (11:09)
[2022-12-17] MEDS ORDERED: Dextrose 5% in Water 1,000 ML IV PRN (11:09)
[2022-12-17] MEDS ORDERED: hydrALAZINE 20 MG/ML VIAL SLOW IVP PRN (11:09)
[2022-12-17] MEDS ORDERED: Morphine 2 MG/ML VIAL SLOW IVP PRN (11:09)
[2022-12-17] MEDS ORDERED: Dextrose 50% Abboject 50 ML SYRINGE SLOW IVP PRN (11:09)
[2022-12-17] MEDS ORDERED: Hydrocodone-Acetamin 15 ML UDCUP PO PRN (11:09)
[2022-12-17] MEDS ORDERED: Ipratropium/Albuterol 3 ML NEB NEB PRN (11:09)
[2022-12-17] MEDS ORDERED: Ondansetron PF 4 MG/2 ML Vial IVP PRN (11:09)
[2022-12-17] MEDS ORDERED: Pantoprazole 40 MG VIAL IVP SCH (11:30)
[2022-12-17] MEDS ORDERED: Levothyroxine Sodium 25 MCG TAB PO SCH (11:30)
[2022-12-17] MEDS ORDERED: HYDROmorphone 0.5 MG/0.5 ML SYRINGE ONE (11:39)
[2022-12-17] MEDS ORDERED: Morphine 2 MG/ML VIAL ONE (11:59)
[2022-12-17] MEDS ORDERED: Morphine 4 MG/ML VIAL ONE (12:18)
[2022-12-17] MEDS: Ketorolac Tromethamine 30 MG/ML VIAL IVP SCH ×3 (13:25→23:49)
[2022-12-17] MEDS: D5 1/2 NS w/20 mEq KCL 1,000 ML IV SCH ×2 (13:26→21:52)
[2022-12-17] MEDS: Morphine 4 MG/ML VIAL SLOW IVP PRN ×2 (17:22→21:52)
[2022-12-18] MEDS: Ketorolac Tromethamine 30 MG/ML VIAL IVP SCH (05:48)
[2022-12-18] MEDS: Morphine 4 MG/ML VIAL SLOW IVP PRN (05:49)
[2022-12-18] MEDS: D5 1/2 NS w/20 mEq KCL 1,000 ML IV SCH (05:56)
[2022-12-18] MEDS ORDERED: Levothyroxine Sodium 25 MCG TAB PO SCH (06:00)
[2022-12-18 06:18] LABS: #Lymphocytes 1.4 thou/uL (1.20-3.40); #Monocytes 0.7 thou/uL (0.11-0.59); #Neutrophils 11.2 thou/uL (1.40-6.50); %Basophils 0.1 % (0.0-1.0); %Eosinophils 0.1 % (0.0-10.0); %Lymphocytes 10.2 % (21.0-51.0); %Monocytes 4.9 % (0.0-10.0); %Neutrophils 84.6 % (42.0-75.0); Hemoglobin 10.8 g/dL (12.0-16.0); Mean Corpuscular HGB CONC 33.7 g/dL (32.0-36.0); Mean Corpuscular Hemoglobin 31.9 pg (27.0-31.0); Mean Corpuscular Volume 94.7 fl (78.0-98.0); Mean Platelet Volume 8.3 fL (7.4-10.4); Platelet Count 271 10x3/uL (130-400); RBC Distribution Width 11.8 % (11.5-14.5); White Blood Cell (WBC) Count 13.2 10x3/uL (4.8-10.8)
[2022-12-18 06:30] LABS: Anion Gap 11 mmol/L (10-20); BUN (Urea Nitrogen) 6 mg/dL (7.0-18.7); Calc. Creatinine Clearance 118 mL/min (70-130); Calcium 8.5 mg/dL (7.8-10.44); Carbon Dioxide 22 mmol/L (22-29); Chloride 108 mmol/L (98-107); Estimated GFR 109; Glucose 126 mg/dL (70-105); Potassium 4.2 mmol/L (3.5-5.1); Sodium 137 mmol/L (136-145)
[2022-12-18] MEDS ORDERED: Pantoprazole 40 MG VIAL IVP SCH (09:00)
[2022-12-18 11:37] VITALS: BP 103/63; TEMP 98
== END 2022-12-18 12:00 | disposition home or self-care (01) | DRG 328 ==
LOC: SURG A 12-17 06:11 → SURG B 12-17 13:10
PROVIDERS: ADMIT Specialist; ATTEND Specialist
PROC: 0D164ZA Bypass Stomach to Jejunum, Percutaneous Endoscopic Approach (ICD-10-PCS; principal; 2022-12-17)
DX: K21.9 Gastro-esophageal reflux disease without esophagitis (principal); K44.9 Diaphragmatic hernia without obstruction or gangrene; E03.9 Hypothyroidism, unspecified; Z98.84 Bariatric surgery status; Z79.899 Other long term (current) drug therapy; Z79.890 Hormone replacement therapy; Z87.19 Personal history of other diseases of the digestive system; Z98.890 Other specified postprocedural states; Z90.49 Acquired absence of other specified parts of digestive tract; Z80.9 Family history of malignant neoplasm, unspecified; Z88.8 Allergy status to other drugs, medicaments and biological substances
CPT/HCPCS: 36415; 80048; 85025; A4649; C1776; C1889; C9113; J1100; J1170; J1644; J1650; J1885; J1956; J2250; J2270; J2272; J2370; J2405; J2704; J3010; J3480; J3490; S0028

== ENCOUNTER 2022-12-13 15:09 | Outpatient (CLI) | payer BC ==
[2022-12-13 16:11] LABS: #Eosinphils 0.2 10x3/uL (0.0-0.5); #Monocytes 0.7 10x3/uL (0.0-1.1); #Neutrophils 4.1 10x3/uL (1.5-8.4); %Basophils 0.5 % (0.0-2.0); %Eosinophils 2.3 % (0.0-6.0); %Lymphocytes 40.2 % (18.0-47.0); %Monocytes 7.9 % (0.0-10.0); %Neutrophils 48.7 % (40.0-75.0); Hemoglobin 13.3 g/dL (12.0-15.5); Mean Corpuscular HGB CONC 33.8 g/dL (32.0-36.0); Mean Corpuscular Hemoglobin 30.7 pg (27.0-33.0); Mean Platelet Volume 10.9 fl (7.4-10.4); Platelet Count 386 10x3/uL (150-450); RBC Distribution Width 12.6 % (11.5-14.5); Red Blood Cell (RBC) Count 4.33 10x6/uL (3.90-5.03); White Blood Cell (WBC) Count 8.3 10x3/uL (3.5-10.5)
[2022-12-13 16:50] LABS: Anion Gap 16 mmol/L (10-20); BUN (Urea Nitrogen) 10 mg/dL (7.0-18.7); Calc. Creatinine Clearance 0 mL/min (70-130); Calcium 9.4 mg/dL (7.8-10.44); Carbon Dioxide 20 mmol/L (22-29); Chloride 105 mmol/L (98-107); Estimated GFR 105; Glucose 82 mg/dL (70-105); Potassium 4.2 mmol/L (3.5-5.1); Sodium 137 mmol/L (136-145)
== END 2022-12-13 15:10 | disposition home or self-care (01) ==
LOC: LABBT 15:09
PROVIDERS: ATTEND Specialist
DX: Z01.812 Encounter for preprocedural laboratory examination (principal); K21.9 Gastro-esophageal reflux disease without esophagitis; K44.9 Diaphragmatic hernia without obstruction or gangrene
CPT/HCPCS: 80048; 85025